=== PATIENT | female | born 1945 | race Caucasian/White ===

== ENCOUNTER 2021-09-12 19:28 | Inpatient (IN) ==
[2021-09-12] MEDS ORDERED: Ondansetron 4 MG/2 ML VIAL IVP PRN (22:49)
[2021-09-12] MEDS ORDERED: Acetaminophen 325 MG TABLET PO PRN (22:49)
[2021-09-12] MEDS ORDERED: Naloxone 0.4 MG/ML INJ IVP PRN (22:49)
[2021-09-12] MEDS ORDERED: Melatonin 3 MG TABLET PO PRN (22:49)
[2021-09-12] MEDS ORDERED: *HR* Promethazine 25 MG/ML VIAL IM PRN (22:49)
[2021-09-12] MEDS ORDERED: Perflutren Lipid Microsphere 1.3 ML in 0.9 % Sodium Chloride 8.7 ML IVP PRN (23:32)
[2021-09-13 01:54] LABS: Eosinophils % 6.2 %; Red Cell Distribution Width 11.9 % (11.5-14.5)
[2021-09-13 01:56] LABS: Basophils % 0.5 %; Eosinophils # 0.4 K/mcL (0.0-0.6); Hematocrit 38.3 % (35.3-44.9); Immature Granulocytes % 0.3 % (0-4); Immature Platelets 2.7 % (1.1-6.1); Lymphocytes # 2.1 K/mcL (0.6-4.6); Lymphocytes % 33.3 %; Mean Corpuscular HGB Conc 33.9 g/dL (31.6-35.5); Mean Corpuscular Hemoglobin 32.5 pg (28.0-33.3); Mean Corpuscular Volume 95.8 fL (83.0-100.0); Mean Platelet Volume 9.9 fL (9.4-12.4); Monocytes # 0.5 K/mcL (0.0-1.3); Monocytes % 7.3 %; Neutrophils # 3.4 K/mcL (1.6-8.9); Platelet Count 211 K/mcL (140-400); Segmented Neutrophils % 52.4 %; White Blood Count 6.4 K/mcL (4.3-11.1)
[2021-09-13 02:04] LABS: INR 1.1; Prothrombin Time 12.5 Seconds (9.4-12.1)
[2021-09-13 02:17] LABS: Alanine Aminotransferase 13 Units/L (7-52); Albumin 3.5 g/dL (3.5-5.7); Albumin/Globulin Ratio 1.3 (1.1-2.2); Alkaline Phosphatase 73 Units/L (34-104); Aspartate Amino Transferase 18 Units/L (13-39); BUN/Creatinine Ratio 19 (6-26); Bilirubin,Total 0.4 mg/dL (0.3-1.0); Blood Urea Nitrogen 17 mg/dL (8-23); Calcium 9.3 mg/dL (8.6-10.3); Carbon Dioxide 24 mEq/L (23-29); Chloride 103 mEq/L (98-107); Chol/HDL Ratio 3.5 (0-4.9); Cholesterol 128 mg/dL (< 200); Globulin 2.8 g/dL (2.4-3.5); Glucose 205 mg/dL (70-105); HDL Cholesterol 37 mg/dL (40-59); LDL Cholesterol,Calculated 60 mg/dL (< 100); Magnesium 1.8 mg/dL (1.6-2.6); Osmolality,Calculated 289 (280-300); Potassium 3.9 mEq/L (3.5-5.1); Sodium 136 mEq/L (136-145); Total Protein 6.3 g/dL (6.4-8.9); Triglycerides 155 mg/dL (< 150); eGFR For African Americans > 60 (> 60); eGFR For Non-African Americans > 60 (> 60)
[2021-09-13 02:20] LABS: Troponin I < 0.03 ng/mL (< 0.04)
[2021-09-13 05:49] LABS: Estimated Average Glucose 177 mg/dl; Hemoglobin A1C 7.8 %
[2021-09-13] MEDS ORDERED: Regadenoson 0.4 MG/5 ML SYRINGE IVP ONE (06:05)
[2021-09-13] MEDS ORDERED: Dextrose 4 GM Chewable Tablets PO PRN ×2 (08:10)
[2021-09-13] MEDS ORDERED: D5% in Water 1,000 ML IVC PRN (08:10)
[2021-09-13] MEDS ORDERED: *HR* Dextrose 50 % in Water (Syg) 50 ML SYRINGE IVP PRN (08:10)
[2021-09-13] MEDS: Insulin LISPRO 300 UNITS/3 ML VIAL SUBQ SCH ×3 (10:20→20:04)
[2021-09-13] MEDS: *HR* Heparin 5,000 UNIT/ML VIAL SQ SCH (18:55)
[2021-09-14] MEDS: Insulin LISPRO 300 UNITS/3 ML VIAL SUBQ SCH ×4 (00:01→18:18)
[2021-09-14] MEDS: *HR* Heparin 5,000 UNIT/ML VIAL SQ SCH ×2 (06:03→15:45)
[2021-09-14 09:49] LABS: Basophils % 0.4 %; Eosinophils # 0.3 K/mcL (0.0-0.6); Eosinophils % 7.4 %; Hematocrit 39.5 % (35.3-44.9); Hemoglobin 13.5 g/dL (11.5-15.4); Lymphocytes # 1.3 K/mcL (0.6-4.6); Lymphocytes % 29.7 %; Mean Corpuscular HGB Conc 34.2 g/dL (31.6-35.5); Mean Corpuscular Hemoglobin 32.6 pg (28.0-33.3); Mean Corpuscular Volume 95.4 fL (83.0-100.0); Mean Platelet Volume 9.4 fL (9.4-12.4); Monocytes # 0.4 K/mcL (0.0-1.3); Monocytes % 7.9 %; Neutrophils # 2.4 K/mcL (1.6-8.9); Platelet Count 202 K/mcL (140-400); Red Blood Count 4.14 M/mcL (3.82-4.97); Red Cell Distribution Width 11.9 % (11.5-14.5); Segmented Neutrophils % 54.6 %; White Blood Count 4.5 K/mcL (4.3-11.1)
[2021-09-14 10:10] LABS: BUN/Creatinine Ratio 19 (6-26); Blood Urea Nitrogen 18 mg/dL (8-23); Carbon Dioxide 25 mEq/L (23-29); Chloride 104 mEq/L (98-107); Glucose 193 mg/dL (70-105); Osmolality,Calculated 291 (280-300); Potassium 3.7 mEq/L (3.5-5.1); Sodium 137 mEq/L (136-145); eGFR For African Americans > 60 (> 60); eGFR For Non-African Americans 58 (> 60)
[2021-09-14] MEDS: Aspirin 81 MG TAB.CHEW PO SCH (10:31)
[2021-09-14] MEDS: Metoprolol XL (24 HR) Succ 50 MG TAB.ER.24H PO SCH (10:31)
[2021-09-14] MEDS ORDERED: Nitroglycerin 0.4 MG TAB.SUBL SL PRN (10:47)
[2021-09-14] MEDS ORDERED: 0.9 % Sodium Chloride 2,000 ML ONE (14:27)
[2021-09-14] MEDS ORDERED: Heparin 1,000 UNITS/500 mL 500 ML ONE (14:27)
[2021-09-14] MEDS ORDERED: *HR* Heparin 10,000 UNIT/10 ML VIAL ONE (14:27)
[2021-09-14] MEDS ORDERED: ISOVUE-370 200 ML INFUS..BTL ONE (14:27)
[2021-09-14] MEDS ORDERED: *HR* FentaNYL (PF) 100 MCG/2 ML VIAL ONE (14:27)
[2021-09-14] MEDS ORDERED: Nitroglycerin 1,000 MCG/5 ML VIAL IV ONE (14:27)
[2021-09-14] MEDS ORDERED: *HR* Midazolam HCl 2 MG/2 ML VIAL ONE (14:27)
[2021-09-14] MEDS ORDERED: Isosorbide MONOnitrate (24 HR) 30 MG TAB.ER.24H PO SCH (15:30)
[2021-09-14] MEDS ORDERED: traZODone 50 MG TABLET PO SCH (21:00)
[2021-09-15 03:46] LABS: BUN/Creatinine Ratio 21 (6-26); Blood Urea Nitrogen 18 mg/dL (8-23); Calcium 8.7 mg/dL (8.6-10.3); Carbon Dioxide 27 mEq/L (23-29); Chloride 103 mEq/L (98-107); Glucose 181 mg/dL (70-105); Magnesium 1.8 mg/dL (1.6-2.6); Osmolality,Calculated 290 (280-300); Phosphorous 3.4 mg/dL (2.7-4.5); Potassium 3.6 mEq/L (3.5-5.1); Sodium 137 mEq/L (136-145); eGFR For African Americans > 60 (> 60); eGFR For Non-African Americans > 60 (> 60)
[2021-09-15] MEDS: *HR* Heparin 5,000 UNIT/ML VIAL SQ SCH (06:25)
[2021-09-15 08:07] VITALS: TEMP 97.5
[2021-09-15] MEDS: Insulin LISPRO 300 UNITS/3 ML VIAL SUBQ SCH ×2 (08:56→11:52)
[2021-09-15] MEDS: Metoprolol XL (24 HR) Succ 50 MG TAB.ER.24H PO SCH (08:58)
[2021-09-15] MEDS: Aspirin 81 MG TAB.CHEW PO SCH (08:59)
[2021-09-15] MEDS ORDERED: Ranolazine 500 MG TAB.ER.12H PO SCH (09:00)
[2021-09-15 10:04] VITALS: BP 114/69; PULSE 68; O2SAT 94
== END 2021-09-15 13:10 | disposition home or self-care (01) | DRG 287 ==
LOC: 3BNU → SUATTDRO 22:00
PROVIDERS: ADMIT Internal Medicine; ATTEND Internal Medicine